=== PATIENT | male | born 1940 | race Caucasian/White ===

== ENCOUNTER 2024-07-26 12:45 | Outpatient (CLI) | payer MEDICARE, SELFPAY ==
--- NOTE | 2024-07-26 13:00 | ECG_ITS ---
Test Date: 2024-07-26 13:15:58 Measurements Intervals [place] Rate: 90 P: 63 AK: 172 QRS: 94 QRSD: 92 T: 27 QT: 365 QTc: 448 Interpretive Statements SINUS RHYTHM RIGHTWARD AXIS BORDERLINE ECG No previous ECG available for comparison Electronically Signed On 07-26-2024 13:29:27 CDT by Morgan Perez M.D.
[2024-07-26 13:47] LABS: Hematocrit 45.4 % (42.0-52.0); Hemoglobin 15.5 g/dL (14.0-18.0); Mean Corpuscular HGB Conc 34.1 g/dl (32-36); Mean Corpuscular Hemoglobin 33.1 pg (26-34); Mean Platelet Volume 9.4 fl (7.4-10.4); Platelet Count Result 157 k/mm3 (150-375); Red Blood Count 4.68 M/mm3 (4.6-6.20); Red Cell Distribution Width 13.9 % (11.5-14.5); White Blood Count 4.4 K/mm3 (4.5-10.0)
[2024-07-26 13:48] LABS: Add Urine Microscopic? NO; Appearance Urine Clear (Clear); Bilirubin Urine Negative (Negative); Blood Urine Negative (Negative); Color Urine Yellow (Yellow); Glucose Urine UA Negative (Negative); Ketones Urine Trace mg/dL (Negative); Leukocyte Esterase Ur Negative LEU/UL (Negative); Nitrate Urine Negative (Negative); Protein Urine Negative (Negative); Specific Grav Ur 1.011 (1.001-1.035); Urobilinogen Urine 0.2 mg/dL (<2.0)
[2024-07-26 14:00] LABS: INR 0.9; Prothrombin Time 12.6 Seconds (11.1-14.7)
[2024-07-26 14:01] LABS: Partial Thromboplastin Time 27.4 Seconds (22.3-36.8)
[2024-07-26 14:04] LABS: Anion Gap 13 mmol/L (4-12); Blood Urea Nitrogen 14 mg/dL (9-20); Calcium 9.3 mg/dL (8.4-10.2); Carbon Dioxide 23 mmol/L (22-30); Chloride 101 mmol/L (98-107); Estimated Glomerular Filt Rate > 60; Glucose 116 mg/dL (65-110); Potassium 3.7 mmol/L (3.4-5.0); Sodium 137 mmol/L (137-145)
== END 2024-07-26 12:46 | disposition home or self-care (01) ==
PROVIDERS: PCP Internal Medicine; Visit Provider Neurological Surgery
DX: Z01.818 Encounter for other preprocedural examination (principal); M48.062 Spinal stenosis, lumbar region with neurogenic claudication; I10 Essential (primary) hypertension
CPT/HCPCS: 36415; 80048; 81003; 85027; 85610; 85730; 93005

== ENCOUNTER 2024-07-31 00:55 | Day surgery (SDC) | payer MEDICARE, SELFPAY ==
[2024-07-25 12:12] VITALS: BMI 29.9
--- NOTE | 2024-07-25 12:49 | PC.NURSE ---
Report to the Outpatient Waiting Room, entrance under the green pavilion located off [facility], at time __10:30AM_ on date _07/31/24_. Planned Procedure Time: __12:30PM .? Time changes happen often and if your time is changed the preop area will call you the afternoon before. - You and your visitor will be asked to self-screen and do not enter if you have any COVID symptoms. Please call surgeon if you need to reschedule. - A mask is optional within the hospital at this time. Patients may have clear liquids (water, carbonated beverages, clear teas, apple juice) until 3 hours prior to surgery with a maximum of 20 ounces. - No food from midnight until time of surgery and no smoking. Take only the following medications with a SIP of water on the morning of surgery: GABAPENTIN. TAKE AMLODIPINE DIRECTED FOR HTN AFTER MONITORING BP. DO NOT STOP ANY OF YOUR OTHER PRESCRIPTION MEDICATIONS PRIOR TO SURGERY EXCEPT THE FOLLOWING Medications to discontinue per physician ____HOLD ALEVE(NSAIDS) AND ALL VITAMINS/SUPPLEMENTS 7 DAYS PRE-OP PER DR CHEN(PER PATIENT) Date to take last dose____07/23/24 Please no make-up, nail tajik, hairspray, perfume, deodorant, or body powder the day of surgery.? No jewelry (including any body piercings) or valuables the day of surgery, leave them at home.? Please take a shower or bath the night before, or the morning of, surgery with an antibacterial soap.? Wear comfortable, loose fitting clothing.? - Jewelry must be removed prior to entering the operating room.? Rings and piercings that are not removed may be cut off. - The hospital will not accept responsibility for valuables.? - Please leave all valuables, including medications, at home the day of surgery. If you are going home after surgery, a licensed mule driver must drive you home.? - NO public transportation without another adult if you receive anesthesia. - We recommend that an adult stay with you for 24 hours following discharge. - We also recommend that you do not drive, make important decision, drink alcoholic beverages, or take any drugs that were not prescribed by your health care provider for at least 24 hours after your discharge time. Follow any additional instructions given to you from your surgeon. Telephone instructions given to ____PATIENT and asked if any additional questions and then verbalized understanding. Patient advised to call surgeon office or pre surgery nurse liaison [phone] if any additional questions.
[2024-07-31] VITALS (14 sets, daily range): BP systolic 111–177; BP diastolic 76–98; PULSE 64–81; RESP 12–94; TEMP 36.1–36.8; O2SAT 92–100
--- NOTE | ~2024-07-31 | XR_ITS ---
EXAMINATION: XR fluoroscopy no charge DATE: 07/31/2024 15:06 INDICATION: L2-L5 stenosis with neurogenic claudication. TECHNIQUE: A single lateral view of the lumbar spine was obtained. I was not present. Fluoroscopy exp osure time was 6 seconds. COMPARISON: None. FINDINGS: There is severe lumbar spondylosis. An instrument overlies the posterior elements at L3-L4. IMPRESSION: 1. Severe lumbar spondylosis. Reviewed, dictated and finalized at location A.
[2024-07-31] MEDS: LACTATED RINGERS 1,000 ML 30 ML IV CONT ×2 (10:45→15:15)
--- NOTE | 2024-07-31 12:05 | P.PNAN_ITS ---
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 Patient Data Age: 84 Gender: M Height: 1.68 m Weight: 84.3 kg Last Vital Signs Temp 36.7 C 07/31/24 10:14 Pulse 64 07/31/24 10:14 Resp 20 07/31/24 10:14 BP 177/78 H 07/31/24 10:14 Pulse Ox 98 07/31/24 10:14 O2 Del Method Room Air 07/31/24 10:14 Allergies Allergy/AdvReac Type Severity Reaction Status Date / Time No Known Allergies Allergy Unverified 07/31/24 10:18 Home Medications Medication Instructions Recorded Confirmed Type rosuvastatin 10 mg tablet 10 mg PO DAILY 06/19/24 07/31/24 History acetaminophen 500 mg capsule 1,000 mg PO Q6H PRN Pain 07/25/24 07/31/24 History amlodipine 5 mg tablet 5 mg PO BID PRN Hypertension 07/25/24 07/31/24 History gabapentin 300 mg capsule 300 mg PO BID 07/25/24 07/31/24 History multivitamin (Multiple Vitamins 1 tablet PO DAILY 07/25/24 07/31/24 History tablet) naproxen sodium 220 mg capsule 440 mg PO BID PRN Pain 07/25/24 07/31/24 History (Aleve) omega-3 fatty acids-vitamin E 1 cap PO DAILY 07/25/24 07/31/24 History 1,000 mg capsule Patient hx anesthesia problems: none Family hx anesthesia problems: none Results Review: All pre-operative results and documents have been reviewed as part of the pre- operative evaluation. [facility] Social History Social History Smoking status: Current some day smoker Tobacco type: cigars Additional smoking assessment comments: SMOKES CIGARS INTERMITTENLY NOW, SMOKED 10/DAY UNTIL ~2013 Alcohol intake: current Drinks per week: 14 Alcohol use details: beer Lack of Transportation: No Lack of Food: Never True Current Housing: I Have Housing Difficulty Paying Gas/Electric Bills: No Difficulty Paying for Meds: No Currently Unemployed: No Education: High School Diploma/GED Difficulty w/ Childcare or Family Care: No Living arrangements: alone Spiritual care concerns: No Anes - Eval Final PreProcedure Day of Procedure 07/31/24 12:05 Patient weight: obese Heart: regular rate and rhythm Lungs: decreased breath sounds Airway: Mallampati scale class III Neurological: alert and oriented Last oral intake: >/= 8 hours ASA classification: III Emergent: no Anesthetic plan: proceed Anesthesia type and monitoring: general ETT and standard monitoring Results Review: All pre-operative results and documents have been reviewed as part of the pre- operative evaluation. Informed Consent: The patient's anesthetic plan and its attendant risks and benefits were discussed with the patient/family/POA. Questions were solicited and answers provided to the satisfaction of the patient/family/POA.
--- NOTE | 2024-07-31 12:39 | PM.IMHP ---
H&P: HPI History of Present Illness Date/Time: 07/31/24 12:39 Chief Complaint: Back and leg pain, neurogenic claudication Narrative: Jeronimo is an 83-year-old gentleman with progressive history of problems going back more than a year of pain in his back especially into his left greater than right lower extremity when he stands and walks it seems to get better if he sits down. This has been getting worse over time. He feels as though his back and leg are weak especially under the same circumstances, that is, when he is standing and walking. Sitting he has relatively little difficulty but has some discomfort in his back. He does not report specific muscle group weakness or dermatomal numbness. He does not report any bowel or bladder difficulty. He has participated in physical therapy and had injections done by heel painter without permanent benefit. The pain is severe and limiting for him on a daily basis. Review of Systems Review of Systems: Const Details: Const All systems reviewed & are unremarkable except as noted in HPI and below Denies chills, Denies fever(s), Denies weakness, Denies weight gain and Denies weight loss Eyes Denies change in vision and Denies diplopia ENT Denies neck pain and Denies disequilibrium Card Denies chest pain and Denies dyspnea Resp Denies cough and Denies dyspnea GI Denies abdominal pain, Denies change in bowel habits, Denies fecal incontinence and Denies vomiting Denies hematuria, Denies oliguria, Denies difficulty urinating, Denies dysuria, Denies urinary frequency, Denies urinary hesitancy, Denies urinary incontinence and Denies urinary urgency Musc Reports as per HPI, Reports back pain, Denies muscle weakness, Denies neck pain, Reports numbness and Denies stiffness Skin/ Breast Reports system reviewed and no additional complaints, except as documented Neuro Reports as per HPI, Denies burning sensations, Denies focal weakness, Reports numbness, Denies Other visual disturbances, Reports radicular pain, Reports paresthesias, Denies disequilibrium and Denies weakness Psych Reports no additional complaints, Denies depression and Denies hopelessness Endo Reports no additional complaints and Denies polyuria Dalton/ Lymph Reports no additional complaints Aller/ Immun Reports no additional complaints PMFSH Social History Social History Smoking status: Current some day smoker Tobacco type: cigars Additional smoking assessment comments: SMOKES CIGARS INTERMITTENLY NOW, SMOKED 10/DAY UNTIL ~2013 Alcohol intake: current Drinks per week: 14 Alcohol use details: beer Lack of Transportation: No Lack of Food: Never True Current Housing: I Have Housing Difficulty Paying Gas/Electric Bills: No Difficulty Paying for Meds: No Currently Unemployed: No Education: High School Diploma/GED Difficulty w/ Childcare or Family Care: No Living arrangements: alone Spiritual care concerns: No Meds Home Medications and Allergies Home Medications Medication Instructions Recorded Confirmed Type rosuvastatin 10 mg tablet 10 mg PO DAILY 06/19/24 07/31/24 History acetaminophen 500 mg capsule 1,000 mg PO Q6H PRN Pain 07/25/24 07/31/24 History amlodipine 5 mg tablet 5 mg PO BID PRN Hypertension 07/25/24 07/31/24 History gabapentin 300 mg capsule 300 mg PO BID 07/25/24 07/31/24 History multivitamin (Multiple Vitamins 1 tablet PO DAILY 07/25/24 07/31/24 History tablet) naproxen sodium 220 mg capsule 440 mg PO BID PRN Pain 07/25/24 07/31/24 History (Aleve) omega-3 fatty acids-vitamin E 1 cap PO DAILY 07/25/24 07/31/24 History 1,000 mg capsule Allergies Allergy/AdvReac Type Severity Reaction Status Date / Time No Known Allergies Allergy Unverified 07/31/24 10:18 Vital Signs Vital Signs - 24 hr 07/31/24 10:14 Temperature 98.1 F Pulse Rate 64 Respiratory Rate 20 Blood Pressure 177/7
--- NOTE | 2024-07-31 12:54 | WPDHPUPDATE1 ---
History and Physical Update Update Date/Time: 07/31/24 12:54 History and Physical has been reviewed, including an updated exam of the patient. There are NO changes in the patient's condition. Risks, benefits, and alternatives have been discussed and questions answered. Patient agrees to proceed with procedure.
[2024-07-31] MEDS: ceFAZolin 2 GM/D5W 50 ML 2 GM/50 ML BAG IVPB (12:57)
[2024-07-31] MEDS: LIDO 1%/EPINEPHRINE 1:100,000 20 ML VIAL 10 ML INFILTRATE (13:34)
--- NOTE | 2024-07-31 14:55 | P.OP_ITS ---
Procedure Note - Detailed Date of Procedure 07/31/24 Pre-op Diagnosis L2-5 stenosis with claudication Post-op Diagnosis Same Procedure Performed L2-5 laminectomy Surgeon Lawson Durant MD Anesthesia General Description of Procedure The patient was brought to the operating room in the supine position, was zuleika pio, intubated placed under general anesthesia in routine fashion. He was then turned into the prone position on a Shamir frame. The operation was back was examined, marked for incision, prepped and draped in routine sterile fashion. Incision was marked over the L2-3 5 spinous processes in the midline. This area was injected with 0.5% lidocaine with [id number] epinephrine. Intravenous antibiotics given prior to incision. Incision was made with a 10 blade scalpel down to the lumbodorsal fascia. Subperiosteal dissection of the muscle soft tissue away from spinous process and lamina was performed with a subperiosteal elevator and Bovie cautery. A verifying x-rays obtained to verify the level of operation. The L2 through L5 spinous processes were removed with a Toña rongeur. MIDAS Fabiano drill with an Malverne bit was used to remove lamina midline and to the soft contents of the canal were encountered. Curved curettes and Kerrison punches were used to define a plane with the dura and removed bone and ligament in the midline. A Midas Fabiano drill with a match stick bit was used to expand the laminectomy. A curved curette was used to define a plane with the dura and Kerrison punches were used to remove overgrown bone and ligament in the lateral recess working from superior to inferior. There was significant stenosis noted at multiple levels with overgrowth of both facet and ligament. This was done until a dental instrument could be placed in the lateral epidural space to confirm lack of compression. The wound was then copiously irrigated with bacitracin irrigation all bleeding stopped with bipolar and Bovie cautery and Gelfoam thrombin powder. The wound was then closed in layered fashion over a medium Hemovac drain left in the subfascial position buried under the inferior right of the incision. 2-0 Vicryl interrupted sutures were placed in the lumbodorsal fascia and Kaz's layer. 3-0 Vicryl buried interrupted sutures were placed in the dermis. A running 4-0 Monocryl subcuticular stitch was placed in the skin which was dressed with Dermabond. The patient was allowed to wake up in the operating room and was taken to the recovery room in stable condition. There were no immediate complications of this operation. All counts were reported correct at the end the case. Blood loss was 300 cc the patient was neurologically at his baseline postoperatively. CPT codes: 49120, 82024 x 3 Estimated Blood Loss 300 Drains Yes Complications None Condition Stable Disposition PACU
[2024-07-31] MEDS: fentaNYL CITRATE INJ (*CRX) 100 MCG/2 ML VIAL 25 MCG IV PUSH ×4 (15:40→15:52)
--- NOTE | 2024-07-31 16:35 | ADMGEN ---
This patient, Jeronimo Rosado, was admitted to Medical Room 250-. Patient/family oriented to hospital policies and general routines including ID bracelet, bed and alarms, visiting hours, pain management, procedures, bathroom and other care routines, personal items, smoking policy, room service/diet, and visiting hours. Information on how to activate the Rapid Response Team has been discussed. Patient/Family are encouraged to report perceived risks to care and to ask questions if they do not understand what they are told or what they should do.
[2024-07-31] MEDS: HYDROcodone/acetaminophen (*CRX) 10-325 MG TABLET 1 TAB PO ×2 (16:50→22:00)
[2024-07-31] MEDS: KCL 20 MEQ/D5/0.45% SOD CHL 1,000 ML 100 ML IV CONT (16:50)
[2024-07-31] MEDS: ceFAZolin 1 GM/NS 50 ML 1 GM/50 ML BAG IVPB (18:46)
[2024-07-31] MEDS: GABAPENTIN 300 MG CAPSULE PO (21:18)
[2024-07-31] MEDS: DOCUSATE SODIUM 100 MG CAPSULE PO (21:18)
[2024-08-01 03:19] VITALS: BP 140/83; PULSE 65; RESP 18; TEMP 36.3; O2SAT 95
[2024-08-01] MEDS: KCL 20 MEQ/D5/0.45% SOD CHL 1,000 ML 100 ML IV CONT (03:25)
[2024-08-01] MEDS: ceFAZolin 1 GM/NS 50 ML 1 GM/50 ML BAG IVPB (03:26)
[2024-08-01 07:19] VITALS: BP 149/89; PULSE 78; RESP 16; TEMP 36.4; O2SAT 95
[2024-08-01] MEDS: GABAPENTIN 300 MG CAPSULE PO (08:41)
[2024-08-01] MEDS: DOCUSATE SODIUM 100 MG CAPSULE PO (08:42)
[2024-08-01] MEDS: CYCLOBENZAPRINE HCL 10 MG TABLET PO ×2 (08:42→12:49)
[2024-08-01] MEDS: ROSUVASTATIN 10 MG TABLET PO (08:42)
[2024-08-01] MEDS: HYDROcodone/acetaminophen (*CRX) 10-325 MG TABLET 1 TAB PO ×2 (08:42→12:49)
[2024-08-01] MEDS: MULTIVITAMINS THERAPEUTIC TAB (*BKC) 1 TABLET PO (08:42)
[2024-08-01] MEDS: ONDANSETRON INJ 4 MG/2 ML VIAL IV PUSH (08:44)
[2024-08-01 12:00] VITALS: BP 151/97; PULSE 76; RESP 16; TEMP 36.9; O2SAT 96
--- NOTE | 2024-08-01 13:01 | PCPTNOTE ---
On 08/01/24, the student, [Sarah Barrett], provided care and completed [facility] documentation on this patient. I have reviewed the student's documentation and agree with the findings.
== END 2024-08-01 13:23 | disposition home health service (06) ==
LOC: ANHSURGERY 10:12 → ANH2MED 16:26
PROVIDERS: PCP Internal Medicine; Visit Provider Neurological Surgery
PROC: (CPT 63005; principal; 2024-07-31 12:30)
DX: M48.062 Spinal stenosis, lumbar region with neurogenic claudication (principal); Z72.0 Tobacco use; E66.9 Obesity, unspecified; Z68.30 Body mass index [BMI] 30.0-30.9, adult
CPT/HCPCS: 63047; 63048 ×2; 36415; 80048; 81003; 85027; 85610; 85730; 93005; 97161; 97166; 97530; 97535; 99199; A9270; J0690; J1100; J1170; J2405; J2704; J3010; J3480; J7120